=== PATIENT | female | born 1940 | race Caucasian/White ===

== ENCOUNTER → 2016-12-24 | Day surgery (SDC) | payer OTHER ==
[~2016-12-24] MED LIST: BACITRACIN IM FOR SOLN 50,000 UNIT VIAL ONE; BUPIVACAINE HCL PF 0.75% 30 ML VIAL ONE; GENTAMICIN SULFATE 80 MG/2 ML VIAL ONE; LIDOCAINE 1%/EPINEPHrine 1:200,000 PF SOLN 30 ML VIAL NERV BLOCK ONE; MIDAZOLAM HCL 5 MG/ML VIAL (1 ML) ONE; PROPOFOL 200 MG/20 ML AMP IV ONE; SODIUM CHLORIDE 0.9% 20 ML VIAL ONE; ceFAZolin INJ 1,000 MG VIAL ONE
--- NOTE | 2016-12-24 14:19 | TN ---
cc: VIOLET KILLIAN M.D. DATE OF SURGERY: December 24, 2016 PREOPERATIVE DIAGNOSIS 1. Right shoulder complete, massive rotator cuff tendon tear; right shoulder impingement syndrome, osteoarthritis AC joint. POSTOPERATIVE DIAGNOSIS 1. Right shoulder complete, massive rotator cuff tendon tear; right shoulder impingement syndrome, osteoarthritis AC joint. PROCEDURE Right shoulder rotator cuff tendon repair, Neer decompressive acromioplasty, resection acromioclavicular joint, excision coracoacromial ligament. SURGEON Selvin Killian MD ADMITTED ATTORNEYS DALI Pérez SPECIMEN None. ESTIMATED BLOOD LOSS Minimum. COMPLICATIONS None. ANESTHESIA Interscalene block, general anesthesia. DRAIN None. CONDITION Stable. PLAN OF ACTIVITY Per orders. PROCEDURE My catering assistant DALI Pérez was present for the entire surgical case. She was medically necessary for the entire case because of the complexity of the case and to facilitate the performance of the procedure. The COLORS CUSTODIAN at the back table was not a skill set for this case to manipulate the instruments, e.g. multiple different types of soft tissue retractors and different surgical equipment for repairing and suturing the tendon. The patient was brought in the operating room and had satisfactory interscalene anesthesia followed by general anesthesia by Dr. Perdue, Department of Anesthesia. The patient was placed in a modified beach-chair position. All pressure points were well-padded. The right shoulder upper extremity down to including the fingers were all prepped and draped in the usual sterile manner. Small anterior exposure of the shoulder was made. Dissection continued through skin and subcutaneous tissue. Tendinous portion of the deltoid was removed off the acromion. Patient was found to have a type 1-2 acromion with OA involving the AC joint. Removal of the AC joint in Neer decompressive acromioplasty was performed, excision of coracoacromial ligament was also performed. With this the patient was found to have complete decompression of subacromial space. The patient was found to have a complete massive rotator cuff tendon tear. Multiple #2 Tycron sutures were woven within the rotator cuff tendon. A bur was used to create a trough in the great tuberosity. Multiple holes using Concept suture passer was used to provide a tendon to bone repair. Multiple drill holes were made to reattach the deltoid to the acromion. Tendinous portion of the deltoid ___ with #2 Tycron suture. The wound was irrigated with copious amounts of saline. The wound itself was dry and was closed in layers with 2-0 Vicryl, skin was approximated with running subcuticular 2-0 Nylon. Sterile dressing was applied. The patient tolerated the procedure well and arrived in the recovery room in stable and satisfactory condition. MD WALTER Moe/MARIJA /1:44 PM /1:53 PM
== END | disposition home or self-care (01) ==
LOC: ESDC 10:43
PROVIDERS: ATTEND Orthopaedic Surgery Orthopaedic Surgery of the Spine
DX: M75.121 Complete rotator cuff tear or rupture of right shoulder, not specified as traumatic (principal); M75.41 Impingement syndrome of right shoulder; M19.011 Primary osteoarthritis, right shoulder
CPT/HCPCS: 00450; 01630; 01991; 23120; 23420; 64417; J0690; J1580; J2250